=== PATIENT | female | born 1960 | race Caucasian/White ===

== ENCOUNTER → 2016-08-23 | Outpatient (CLI) | payer MEDICAID ==
[2016-08-23 12:58] LABS: Hemoglobin A1C 6.6 % (4.2-6.1)
== END | disposition home or self-care (01) ==
LOC: LABWHC1 07:52
PROVIDERS: ATTEND Internal Medicine Endocrinology, Diabetes & Metabolism
DX: E11.65 Type 2 diabetes mellitus with hyperglycemia (principal)
CPT/HCPCS: 36415; 83036

== ENCOUNTER → 2016-10-30 | Outpatient (CLI) | payer MEDICAID ==
--- NOTE | 2016-10-31 21:30 | CT ---
EXAMINATION TYPE: CT heart w calcium score DATE OF EXAM: 10/31/2016 12:27 PM COMPARISON: NONE HISTORY: Screening for cardiovascular disorder. 213.9 CT DLP: 130.8 mGycm Automated exposure control for dose reduction was used. CT CALCIUM SCORING Coronary calcium is a marker for plaque (fatty deposits) in a blood vessel or atherosclerosis (harden ing of the arteries). The presence and amount of calcium detected in a coronary artery by the CT sca n, indicates the presence and amount of atherosclerotic plaque. These calcium deposits appear years before the development of heart disease symptoms such as chest pain and shortness of breath. A calcium score is computed for each of the coronary arteries based upon the volume and density of th e calcium deposits. This can be referred to as your calcified plaque burden. It does not correspond directly to the percentage of narrowing in the artery but does correlate with the severity of the un derlying coronary atherosclerosis. PROCEDURE TECHNIQUE - Prospective Gating was used. Slice thickness: 3mm. Density threshold (HU): 130, Pixel threshold: 3, Algorithm: discrete. RESULTS Region Calcium Score ([place]at[place]) Volume (mm3) Mass (g) LM 0 0 0 RCA 0 0 0 LAD 0 0 0 CX 0 0 0 Total 0 0 0 TOTAL CALCIUM SCORE 0 OTHER: Internal Grinder Tender image shows cholecystectomy clips inferiorly. Incidental note is made of dominant left coronary or circumflex artery some multilevel spurring anteriorly in the visualized thoracic spine is present. Linear scarring in the lingula is felt present near axial image 22. IMPRESSION: Calcium Score: 0 Implication: No identifiable plaque. Risk of Coronary Artery Disease: Very low, generally less than 5%.
== END | disposition home or self-care (01) ==
LOC: RADXRMAIN 15:53
PROVIDERS: ATTEND Radiology Diagnostic Radiology
DX: Z13.9 Encounter for screening, unspecified (principal)

== ENCOUNTER → 2017-07-20 | Outpatient (CLI) | payer MEDICAID ==
[2017-07-20 09:25] LABS: ALT 69 U/L (9-52); AST 36 U/L (14-36); Alkaline Phosphatase 84 U/L (38-126); Anion Gap 12 mmol/L; Blood Urea Nitrogen 16 mg/dL (7-17); Calcium 9.5 mg/dL (8.4-10.2); Carbon Dioxide 25 mmol/L (22-30); Chloride 102 mmol/L (98-107); Cholesterol 115 mg/dL (<200); Glucose 266 mg/dL (74-99); HDL Cholesterol 41 mg/dL (40-60); LDL Cholesterol,Calculated 45 mg/dL (0-99); Potassium 4.4 mmol/L (3.5-5.1); Sodium 139 mmol/L (137-145); Total Bilirubin 0.7 mg/dL (0.2-1.3); Total Protein 6.7 g/dL (6.3-8.2); Triglycerides 143 mg/dL (<150)
[2017-07-20 17:34] LABS: Hemoglobin A1C 10.5 % (4.0-6.0)
== END | disposition home or self-care (01) ==
LOC: LABWHC1 08:14
PROVIDERS: ATTEND Internal Medicine Endocrinology, Diabetes & Metabolism
DX: E11.65 Type 2 diabetes mellitus with hyperglycemia (principal); E03.8 Other specified hypothyroidism
CPT/HCPCS: 36415; 80053; 80061; 82043; 82570; 83036; 84443

== ENCOUNTER → 2017-07-31 | Outpatient (CLI) | payer MEDICAID | END | disposition home or self-care (01) | LOC: LABWHC1 15:03 | PROVIDERS: ATTEND Internal Medicine Endocrinology, Diabetes & Metabolism | DX: E11.65 Type 2 diabetes mellitus with hyperglycemia (principal) | CPT/HCPCS: 36415; 82947; 84681 ==

== ENCOUNTER → 2017-08-16 | Outpatient (CLI) | payer OTHER ==
--- NOTE | 2017-08-16 16:04 | XR ---
EXAMINATION TYPE: XR tibia fibula LT DATE OF EXAM: 08/16/2017 COMPARISON: NONE HISTORY: Pain and bruising from fall TECHNIQUE: 2 view left tibia and fibula FINDINGS: No acute fractures or dislocations are evident. Joint spaces appear preserved. Some soft ti ssue swelling is along the anterior proximal and mid tibia region. Follow-up exam can be performed 7-10 days from acute trauma for continued pain. IMPRESSION: 1. Soft tissue swelling anterior proximal left foreleg.
--- NOTE | 2017-08-16 16:05 | XR ---
EXAMINATION TYPE: XR chest 2V DATE OF EXAM: 08/16/2017 COMPARISON: 05/06/2013 TECHNIQUE: PA and lateral views submitted. HISTORY: Pain post fall FINDINGS: The lungs are clear and there is no pneumothorax, pleural effusion, or focal pneumonia. Mild diffus e osteopenia and arthropathy of the AC joint. Hypertrophic change of the spine with a curvature corre late for scoliosis. IMPRESSION: 1. No acute process.
--- NOTE | 2017-08-16 16:10 | XR ---
EXAMINATION TYPE: XR ribs LT DATE OF EXAM: 08/16/2017 COMPARISON: NONE HISTORY: Pain post fall TECHNIQUE: 4 views of the left ribs are submitted FINDINGS: Mild diffuse osteopenia. Hypertrophic change and curvature the spine noted. Mild arthropath y AC joint. There is a slight deformity anterior lateral margin of the left seventh rib. No displaced fracture se en. IMPRESSION: No acute displaced rib fracture. There is a subtle deformity in the left anterior seventh rib which may represent hairline nondisplaced fracture. No pneumothorax.
== END | disposition home or self-care (01) ==
LOC: RADXRMAIN 15:12
PROVIDERS: ATTEND Emergency Medicine
DX: R07.82 Intercostal pain (principal); S20.20XA Contusion of thorax, unspecified, initial encounter; S80.12XA Contusion of left lower leg, initial encounter; M79.89 Other specified soft tissue disorders
CPT/HCPCS: 71046

== ENCOUNTER → 2017-11-07 | Outpatient (CLI) | payer MEDICAID ==
[2017-11-07 09:07] LABS: ALT 53 U/L (9-52); AST 37 U/L (14-36); Albumin 4.2 g/dL (3.5-5.0); Alkaline Phosphatase 89 U/L (38-126); Anion Gap 15 mmol/L; Blood Urea Nitrogen 17 mg/dL (7-17); Calcium 9.6 mg/dL (8.4-10.2); Carbon Dioxide 26 mmol/L (22-30); Chloride 102 mmol/L (98-107); Glucose 194 mg/dL (74-99); Potassium 4.5 mmol/L (3.5-5.1); Sodium 143 mmol/L (137-145); Total Bilirubin 0.7 mg/dL (0.2-1.3); Total Protein 6.8 g/dL (6.3-8.2)
== END ==
LOC: LABWHC1 07:54
PROVIDERS: ATTEND Internal Medicine Endocrinology, Diabetes & Metabolism
DX: E11.65 Type 2 diabetes mellitus with hyperglycemia (principal)
CPT/HCPCS: 36415; 80053; 83036; 84443

== ENCOUNTER → 2018-04-29 | Outpatient (CLI) | payer MEDICAID ==
[2018-04-29 09:15] LABS: ALT 41 U/L (9-52); AST 24 U/L (14-36); Albumin 4.1 g/dL (3.5-5.0); Alkaline Phosphatase 94 U/L (38-126); Anion Gap 9 mmol/L; Blood Urea Nitrogen 16 mg/dL (7-17); Calcium 9.9 mg/dL (8.4-10.2); Carbon Dioxide 29 mmol/L (22-30); Chloride 103 mmol/L (98-107); Cholesterol 133 mg/dL (<200); Glucose 213 mg/dL (74-99); HDL Cholesterol 44 mg/dL (40-60); LDL Cholesterol,Calculated 50 mg/dL (0-99); Potassium 4.7 mmol/L (3.5-5.1); Sodium 141 mmol/L (137-145); Total Bilirubin 0.6 mg/dL (0.2-1.3); Total Protein 7.1 g/dL (6.3-8.2); Triglycerides 196 mg/dL (<150)
[2018-04-29 20:39] LABS: Hemoglobin A1C 8.7 % (4.0-6.0)
== END ==
LOC: LABWHC1 07:49
PROVIDERS: ATTEND Internal Medicine Endocrinology, Diabetes & Metabolism
DX: E11.65 Type 2 diabetes mellitus with hyperglycemia (principal); E03.8 Other specified hypothyroidism
CPT/HCPCS: 36415; 80053; 80061; 82043; 82570; 83036; 84443

== ENCOUNTER → 2018-08-23 | Outpatient (CLI) | payer MEDICAID ==
[2018-08-23 18:14] LABS: Albumin 4.3 g/dL (3.80-4.90); Albumin/Globulin Ratio 2.05 (1.60-3.17); Anion Gap 10.7 mmol/L (4.00-12.00); Calcium 9.6 mg/dL (8.7-10.3); Carbon Dioxide 26.3 mmol/L (21.6-31.8); Globulin 2.1 g/dL (1.6-3.3); LDL Cholesterol,Calculated 51.6 mg/dL (0.0-131.0); Potassium 4.5 mmol/L (3.5-5.5); Total Bilirubin 0.6 mg/dL (0.2-1.2); Total Protein 6.4 g/dL (6.2-8.2); VLDL Calculation 29.4 mg/dL (5.00-40.00)
== END ==
LOC: LABWHC1 07:40
PROVIDERS: ATTEND Internal Medicine Endocrinology, Diabetes & Metabolism
DX: E11.65 Type 2 diabetes mellitus with hyperglycemia (principal); E03.8 Other specified hypothyroidism
CPT/HCPCS: 36415; 80053; 80061; 82043; 82570; 83036; 84443

== ENCOUNTER 2018-11-18 15:12 | Emergency (ER) | payer MEDICAID ==
[2018-11-18] MEDS ORDERED: KETOROLAC 30 MG/ML 1 ML VIAL IVP STA ×2 (15:30→16:02)
[2018-11-18] MEDS ORDERED: SODIUM CHLORIDE 0.9% 500 ML 500 ML IV STA (15:30)
[2018-11-18] MEDS ORDERED: ONDANSETRON 4 MG/2 ML VIAL IVP STA (15:30)
[2018-11-18] MEDS ORDERED: SODIUM CHLORIDE 0.9% 1,000 ML IV STA (15:30)
--- NOTE | 2018-11-18 15:32 | ED ---
Abdominal Pain HPI - General Chief Complaint: Abdominal Pain Stated Complaint: Kidney Stone Time Seen by Provider: 11/18/18 15:20 Source: patient, RN notes reviewed Mode of arrival: ambulatory Limitations: no limitations - History of Present Illness Initial Comments: This is a 50-year-old female with one prior episode of kidney stones who states he had the onset last evening of left-sided flank and CVA area pain she states is worse it is 10/10 currently it's severity sharp in nature from most part nonradiating. He had nausea and vomiting with that. No diarrhea. No fevers chills or sweats or other symptoms. He does not seem to get any worse with movement or deep breathing. It feels identical to her previous kidney stone. She also denies any hematuria or dysuria MD Complaint: flank pain - Related Data Home Medications Medication Instructions Recorded Confirmed Atorvastatin Calcium [Lipitor] 10 mg PO DAILY 11/18/18 11/18/18 Dulaglutide [Trulicity] 1.5 mg SQ TH 11/18/18 11/18/18 Ibuprofen [Motrin Ib] 400 mg PO Q8H 11/18/18 11/18/18 Ketorolac [Toradol] 10 mg PO Q12HR 11/18/18 11/18/18 Levothyroxine Sodium [Synthroid] 137 mcg PO DAILY 11/18/18 11/18/18 metFORMIN HCL [Glucophage Xr] 500 mg PO BID 11/18/18 11/18/18 Previous Rx's Medication Instructions Recorded Ketorolac [Toradol] 10 mg PO Q6HR #20 tab 11/18/18 Tamsulosin HCl [Flomax] 0.4 mg PO DAILY #7 capsule 11/18/18 Allergies Allergy/AdvReac Type Severity Reaction Status Date / Time codeine AdvReac Nausea & Verified 11/18/18 15:53 Vomiting morphine AdvReac Nausea & Verified 11/18/18 15:53 Vomiting Review of Systems ROS Statement: Those systems with pertinent positive or pertinent negative responses have been documented in the HPI. ROS Other: All systems not noted in ROS Statement are negative. Past Medical History Past Medical History: Diabetes Mellitus, Thyroid Disorder Additional Past Medical History / Comment(s): kidney stones History of Any Multi-Drug Resistant Organisms: None Reported Past Surgical History: Appendectomy, Section, Cholecystectomy, Orthopedic Surgery, Tonsillectomy Additional Past Surgical History / Comment(s): x3. lt knee Past Anesthesia/Blood Transfusion Reactions: No Reported Reaction Past Psychological History: No Psychological Hx Reported Smoking Status: Never smoker Past Alcohol Use History: None Reported Past Drug Use History: None Reported General Exam - General Exam Comments Initial Comments: This is a well-developed well-nourished awake alert oriented 3 female Limitations: no limitations General appearance: alert, anxious, in distress Head exam: Present: atraumatic, normocephalic, normal inspection Eye exam: Present: normal appearance, PERRL, EOMI. Absent: scleral icterus, conjunctival injection, periorbital swelling ENT exam: Present: normal exam, mucous membranes moist Neck exam: Present: normal inspection. Absent: tenderness, meningismus, lymphadenopathy Respiratory exam: Present: normal lung sounds bilaterally. Absent: respiratory distress, wheezes, rales, rhonchi, stridor Cardiovascular Exam: Present: regular rate, normal rhythm, normal heart sounds. Absent: systolic murmur, diastolic murmur, rubs, gallop, clicks GI/Abdominal exam: Present: soft, tenderness (Mild left flank tenderness palpation), normal bowel sounds. Absent: distended, guarding, rebound, rigid, bruit, pulsatile mass Extremities exam: Present: normal inspection, full ROM, normal capillary refill. Absent: tenderness, pedal edema, joint swelling, calf tenderness Back exam: Present: normal inspection, full ROM, CVA tenderness (L). Absent: rash noted Neurological exam: Present: alert, oriented X3, CN II-XII intact Psychiatric exam: Present: normal affect, normal mood Skin exam: Present: warm, dry, intact, normal color. Absent: rash Course Vital Signs 11/18/18 15:18 Temperature 98.9 F Pulse Rate 81 Respiratory 22 Rate Blood Pressure 165/95 O2 Sat by Pulse 98 Oximetry - Reevaluation(s) Reevaluation #1: 11/18/18 16:36 I did initially some pain relief from a 9 to a 6 on the first Toradol dose he get more relief after the second dose. Medical Decision Making - Medical Decision Making Patient is feeling somewhat improved she still has some pain but she would like to go home she'll be discharged with Toradol and Flomax prescriptions. She can follow-up with her doctor return when necessary - Lab Data Result diagrams: 11/18/18 15:32 11/18/18 15:32 Lab Results 11/18/18 11/18/18 11/18/18 Range/Units 15:32 15:32 15:32 WBC 13.1 H (3.8-10.6) k/uL RBC 4.94 (3.80-5.40) m/uL Hgb 15.1 (11.4-16.0) gm/dL Hct 45.3 (34.0-46.0) % MCV 91.6 (80.0-100.0) fL MCH 30.5 (25.0-35.0) pg MCHC 33.3 (31.0-37.0) g/dL RDW 13.0 (11.5-15.5) % Plt Count 256 (150-450) k/uL Neutrophils % 85 % Lymphocytes % 9 % Monocytes % 4 % Eosinophils % 1 % Basophils % 0 % Neutrophils # 11.1 H (1.3-7.7) k/uL Lymphocytes # 1.1 (1.0-4.8) k/uL Monocytes # 0.5 (0-1.0) k/uL Eosinophils # 0.1 (0-0.7) k/uL Basophils # 0.0 (0-0.2) k/uL Sodium 141 (137-145) mmol/L Potassium 3.9 (3.5-5.1) mmol/L Chloride 104 (98-107) mmol/L Carbon Dioxide 22 (22-30) mmol/L Anion Gap 15 mmol/L BUN 15 (7-17) mg/dL Creatinine 0.97 (0.52-1.04) mg/dL Est GFR (CKD-EPI)AfAm 75 (>60 ml/min/1.73 sqM) Est GFR (CKD-EPI)NonAf 65 (>60 ml/min/1.73 sqM) Glucose 175 H (74-99) mg/dL Calcium 9.9 (8.4-10.2) mg/dL Total Bilirubin 0.6 (0.2-1.3) mg/dL AST 31 (14-36) U/L ALT 39 (9-52) U/L Alkaline Phosphatase 84 (38-126) U/L Creatine Kinase 67 (30-135) U/L Troponin I <0.012 (0.000-0.034) ng/mL Total Protein 7.5 (6.3-8.2) g/dL Albumin 4.6 (3.5-5.0) g/dL Amylase 95 (30-110) U/L Lipase 358 H (23-300) U/L - Radiology Data Radiology results: report reviewed (I did review the imaging and report evidence of a 2 mm distal ureter stone in the left mild hydronephrosis, nonobstructing.), image reviewed Disposition Clinical Impression: Kidney stone on left side, Renal colic on left side, Hydronephrosis Disposition: HOME SELF-CARE Condition: Good Instructions (If sedation given, give patient instructions): Kidney Stones (ED), Flank Pain (ED), Renal Colic (ED) Prescriptions: Tamsulosin HCl [Flomax] 0.4 mg PO DAILY #7 capsule Ketorolac [Toradol] 10 mg PO Q6HR #20 tab Is patient prescribed a controlled substance at d/c from ED?: No Referrals: Yovani Perea Jr, [Primary Care Provider] - 1-2 days
[2018-11-18 15:51] LABS: Basophils % (A) 0 %; Eosinophils # (A) 0.1 k/uL (0-0.7); Eosinophils % (A) 1 %; HCT 45.3 % (34.0-46.0); HGB 15.1 gm/dL (11.4-16.0); Lymphocytes # (A) 1.1 k/uL (1.0-4.8); Lymphocytes % (A) 9 %; MCH 30.5 pg (25.0-35.0); MCHC 33.3 g/dL (31.0-37.0); MCV 91.6 fL (80.0-100.0); Mean Platelet Volume 8.1; Monocytes # (A) 0.5 k/uL (0-1.0); Monocytes % (A) 4 %; Neutrophils # (A) 11.1 k/uL (1.3-7.7); Neutrophils % (A) 85 %; Platelet Count 256 k/uL (150-450); RBC 4.94 m/uL (3.80-5.40); WBC 13.1 k/uL (3.8-10.6)
[2018-11-18 15:55] LABS: Albumin 4.6 g/dL (3.5-5.0); Calcium 9.9 mg/dL (8.4-10.2); Potassium 3.9 mmol/L (3.5-5.1); Total Bilirubin 0.6 mg/dL (0.2-1.3); Total Protein 7.5 g/dL (6.3-8.2)
[2018-11-18] MEDS ORDERED: TAMSULOSIN 0.4 MG CAP.ER.24H PO STA (16:02)
--- NOTE | 2018-11-18 16:05 | XR ---
EXAMINATION TYPE: XR KUB DATE OF EXAM: 11/18/2018 CLINICAL DATA: 58-year-old female left-sided abdominal pain, [facility] COMPARISON: 03/21/2012 FINDINGS: Lung bases are clear. No evidence for free intraperitoneal air. Cholecystectomy clips. No dilated small bowel or air-fluid levels. Scattered air seen throughout the colon extending distall y into the rectum. Mild stool in the right side of the abdomen. No suspicious calcifications identified. IMPRESSION: No suspicious calcification is radiographically apparent. No evidence of bowel obstruction or free in traperitoneal air.
--- NOTE | 2018-11-18 16:31 | CT ---
EXAMINATION TYPE: CT abdomen pelvis wo con DATE OF EXAM: 11/18/2018 COMPARISON: Abdomen same date, CT abdomen pelvis 03/21/2012 HISTORY: Left sided pain with vomiting CT DLP: 705.9 mGycm Automated exposure control for dose reduction was used. TECHNIQUE: Helical acquisition of images from the lung bases through the pelvis. FINDINGS: Lack of contrast could compromise sensitivity. Probable small hiatal hernia LUNG BASES: No significant abnormality is appreciated. AORTA: No significant abnormality is appreciated. LIVER/GB: Patient is post cholecystectomy. No evident liver mass. PANCREAS: No significant abnormality is seen. SPLEEN: No significant abnormality is seen. ADRENALS: No significant abnormality is seen. KIDNEYS: There is mild left-sided hydronephrosis. Nonobstructive calculus punctate at the lower pole. Left-sided hydroureter is present. At the level of the distal left ureter there is a punctate calcif ication measuring only approximately 2 mm. REPRODUCTIVE ORGANS: No significant abnormality is seen. URINARY BLADDER: No significant abnormality is seen. BOWEL: No significant abnormality is seen. FREE AIR: No Free Air is visible. ASCITES: None visible. PELVIC ADENOPATHY: None visualized. RETROPERITONEAL ADENOPATHY: No Retroperitoneal Adenopathy visible. OSSEOUS STRUCTURES: No significant abnormality is seen. IMPRESSION: PUNCTATE DISTAL LEFT URETERAL CALCULUS. MILD LEFT HYDRONEPHROSIS. POSTOP CHANGES. NONCONTRAST EXAM.
[2018-11-18 16:58] VITALS: BP 139/86; PULSE 74; RESP 18; TEMP 98.7
== END 2018-11-18 16:58 | disposition home or self-care (01) ==
LOC: EC 15:12
DX: N13.2 Hydronephrosis with renal and ureteral calculous obstruction (principal); E11.9 Type 2 diabetes mellitus without complications; E07.9 Disorder of thyroid, unspecified; Z90.49 Acquired absence of other specified parts of digestive tract; Z79.899 Other long term (current) drug therapy; Z79.1 Long term (current) use of non-steroidal anti-inflammatories (NSAID); Z79.890 Hormone replacement therapy; Z79.84 Long term (current) use of oral hypoglycemic drugs; Z88.5 Allergy status to narcotic agent
CPT/HCPCS: 36415; 80053; 82150; 82550; 83690; 84484; 85025; 74018; 74176; 99284; 96374; 96375; 96376; 96361; J2405; J1885; 99283

== ENCOUNTER → 2019-03-19 | Outpatient (CLI) | payer MEDICAID ==
[2019-03-19 17:01] LABS: African American GFR (CKD) 81.7 (60.0-200.0); Albumin 4.3 g/dL (3.80-4.90); Albumin/Globulin Ratio 2.26 (1.60-3.17); Anion Gap 10.9 mmol/L (4.00-12.00); BUN/Creat Ratio 18.89 Ratio (12.00-20.00); Calcium 9.4 mg/dL (8.7-10.3); Carbon Dioxide 25.1 mmol/L (21.6-31.8); Chol/HDL Ratio 3.15; Globulin 1.9 g/dL (1.6-3.3); Potassium 4.7 mmol/L (3.5-5.5); Total Bilirubin 0.5 mg/dL (0.2-1.2); Total Protein 6.2 g/dL (6.2-8.2)
[2019-03-19 18:49] LABS: Hemoglobin A1C 7.4 % (4.0-6.0)
== END | disposition home or self-care (01) ==
LOC: LABWHC1 07:54
PROVIDERS: ATTEND Internal Medicine Endocrinology, Diabetes & Metabolism
DX: E11.65 Type 2 diabetes mellitus with hyperglycemia (principal)
CPT/HCPCS: 36415; 80053; 80061; 82043; 82570; 83036; 84443

== ENCOUNTER → 2019-08-06 | Outpatient (CLI) | payer MEDICAID ==
[2019-08-06 12:08] LABS: African American GFR (CKD) 81.1 (60.0-200.0); Albumin 4.3 g/dL (3.80-4.90); Albumin/Globulin Ratio 2.39 (1.60-3.17); Anion Gap 11.4 mmol/L (4.00-12.00); BUN/Creat Ratio 18.89 Ratio (12.00-20.00); Calcium 9.4 mg/dL (8.7-10.3); Carbon Dioxide 25.6 mmol/L (21.6-31.8); Chol/HDL Ratio 3.73; Globulin 1.8 g/dL (1.6-3.3); LDL Cholesterol,Calculated 35.2 mg/dL (0.0-131.0); Potassium 4.6 mmol/L (3.5-5.5); Total Bilirubin 0.5 mg/dL (0.2-1.2); Total Protein 6.1 g/dL (6.2-8.2); VLDL Calculation 46.8 mg/dL (5.00-40.00)
[2019-08-06 14:48] LABS: Hemoglobin A1C 8.2 % (4.0-6.0)
[2019-08-07 04:18] LABS: Urine Creatinine 241.9 mg/dL
== END ==
LOC: LABWHC1 06:35
PROVIDERS: ATTEND Internal Medicine Endocrinology, Diabetes & Metabolism
DX: E11.65 Type 2 diabetes mellitus with hyperglycemia (principal)
CPT/HCPCS: 36415; 80053; 80061; 82043; 82570; 83036; 84443

== ENCOUNTER → 2019-12-11 | Outpatient (CLI) | payer MEDICAID ==
--- NOTE | 2019-12-11 15:23 | XR ---
EXAMINATION TYPE: XR toes RT DATE OF EXAM: 12/11/2019 COMPARISON: NONE HISTORY: Pain TECHNIQUE: 3 views submitted FINDINGS: There is diffuse soft tissue edema. Mild arthropathy of the DIP and MTP joint with no evide nce of erosive change. Mild osteopenic change. On the lateral view there is a cortical offset involvi ng the dorsal surface of the base of the distal phalanx compatible with a hairline minimally displace d fracture. IMPRESSION: 1. Diffuse soft tissue edema. On the lateral view there is a cortical offset along the dorsal surface of the base of the distal phalanx suggestive of a hairline fracture.
== END | disposition home or self-care (01) ==
LOC: RADXRMAIN 15:05
PROVIDERS: ATTEND Radiology Diagnostic Radiology
DX: S99.921A Unspecified injury of right foot, initial encounter (principal)

== ENCOUNTER → 2020-03-23 | Outpatient (CLI) | payer MEDICAID ==
[2020-03-23 11:44] LABS: African American GFR (CKD) 81.1 (60.0-200.0); Albumin 4.2 g/dL (3.80-4.90); Anion Gap 8.8 mmol/L (4.00-12.00); BUN/Creat Ratio 23.33 Ratio (12.00-20.00); Calcium 9.1 mg/dL (8.7-10.3); Carbon Dioxide 24.2 mmol/L (21.6-31.8); Chol/HDL Ratio 3.71; Globulin 2.1 g/dL (1.6-3.3); LDL Cholesterol,Calculated 44.2 mg/dL (0.0-131.0); Potassium 4.3 mmol/L (3.5-5.5); Total Bilirubin 0.5 mg/dL (0.3-1.2); Total Protein 6.3 g/dL (6.2-8.2); VLDL Calculation 39.8 mg/dL (5.00-40.00)
[2020-03-23 15:55] LABS: Hemoglobin A1C 10.2 % (4.0-6.0)
[2020-03-23 20:49] LABS: Urine Creatinine 166.7 mg/dL
== END | disposition home or self-care (01) ==
LOC: LABWHC1 06:59
PROVIDERS: ATTEND Internal Medicine Endocrinology, Diabetes & Metabolism
DX: E11.65 Type 2 diabetes mellitus with hyperglycemia (principal)
CPT/HCPCS: 36415; 80053; 80061; 82043; 82570; 83036; 84443

== ENCOUNTER → 2020-10-06 | Outpatient (CLI) | payer MEDICAID ==
[2020-10-06 16:36] LABS: Hemoglobin A1C 7.1 % (4.0-6.0)
[2020-10-07 01:26] LABS: Urine Creatinine 250.9 mg/dL
[2020-10-07 05:15] LABS: African American GFR (CKD) 80.5 (60.0-200.0); Albumin 4.3 g/dL (3.80-4.90); Albumin/Globulin Ratio 2.15 (1.60-3.17); Anion Gap 10.4 mmol/L (4.00-12.00); BUN/Creat Ratio 24.44 Ratio (12.00-20.00); Calcium 9.9 mg/dL (8.7-10.3); Carbon Dioxide 21.6 mmol/L (21.6-31.8); Chol/HDL Ratio 3.48; Non-African American GFR(CKD) 69.5 (60.0-200.0); Potassium 4.7 mmol/L (3.5-5.5); Total Bilirubin 0.4 mg/dL (0.2-1.2); Total Protein 6.3 g/dL (6.2-8.2)
== END | disposition home or self-care (01) ==
LOC: LABWHC1 06:52
PROVIDERS: ATTEND Internal Medicine Endocrinology, Diabetes & Metabolism
DX: E11.65 Type 2 diabetes mellitus with hyperglycemia (principal)
CPT/HCPCS: 36415; 80053; 80061; 82043; 82570; 83036; 84443

== ENCOUNTER → 2020-10-08 | Outpatient (CLI) | payer MEDICAID | END | disposition home or self-care (01) | LOC: LABWHC1 10:08 | PROVIDERS: ATTEND Internal Medicine Endocrinology, Diabetes & Metabolism | DX: E11.65 Type 2 diabetes mellitus with hyperglycemia (principal) | CPT/HCPCS: 84443 ==

== ENCOUNTER 2020-10-22 06:46 | Day surgery (SDC) | payer MEDICAID ==
[2020-10-19 15:46] VITALS: BMI 30.4
[~2020-10-22 06:46] MED LIST: LACTATED RINGERS 1,000 ML IV SCH; LIDOCAINE 1% (10MG/ML) FOR IV START INTRADERMA PRN
[2020-10-22 07:18] VITALS: RESP 16; TEMP 97.7
[2020-10-22 07:21] LABS: Glucose,Whole Blood 132 mg/dL (75-99)
[2020-10-22] MEDS ORDERED: PROPOFOL 10 MG/ML 20 ML VIAL IV ONE (07:21)
--- NOTE | 2020-10-22 07:44 | P.PCN ---
Date of Procedure: 10/22/20 Procedure(s) Performed: BRIEF HISTORY: Patient is a 60-year-old pleasant female scheduled for an elective colonoscopy as a part of screening for colorectal neoplasia. Her last colonoscopy was 11 years ago. PROCEDURE PERFORMED: Colonoscopy with biopsy. PREOPERATIVE DIAGNOSIS: Screening for colon cancer. IV sedation per Anesthesia. PROCEDURE: After informed consent was obtained, the patient, was brought into the endoscopy unit. IV sedation was administered by Anesthesia under continuous monitoring. Digital rectal examination was normal. Initially the Olympus CF-160 flexible video colonoscope was then inserted in the rectum, gradually advanced into the cecum without any difficulty. Careful examination was performed as the scope was gradually being withdrawn. Ileocecal valve and the appendiceal orifice were visualized and appeared normal. Prep was excellent. Mucosa of the cecum, appeared normal. In the ascending colon there was a 3 mm polyp that was removed by cold biopsy. Rest of the ascending colon, transverse colon, descending colon, sigmoid colon, and rectum appeared normal. In the proximal rectum there was a 2 mm polyp that was removed by cold biopsy. Left-sided diverticulosis seen. Retroflexion was performed in the rectum and no lesions were seen. The patient tolerated the procedure well. IMPRESSION: 3 mm ascending colon polyp status post removal with cold biopsy 2 mm rectal polyp status post removal by cold biopsy Scattered left sided diverticulosis. RECOMMENDATIONS: Findings of this examination were discussed with the patient as well as a family. She was advised to follow with the biopsy results. If the biopsy shows an adenoma she can have a repeat colonoscopy in 5 years.
[2020-10-22 08:06] VITALS: BP 136/75; PULSE 63
== END 2020-10-22 08:19 | disposition home or self-care (01) ==
LOC: ORWHC2ENDO 06:46
PROVIDERS: ATTEND Internal Medicine Gastroenterology
DX: Z12.11 Encounter for screening for malignant neoplasm of colon (principal); K63.5 Polyp of colon; K62.1 Rectal polyp; K57.30 Diverticulosis of large intestine without perforation or abscess without bleeding; E78.5 Hyperlipidemia, unspecified; E07.9 Disorder of thyroid, unspecified; E11.9 Type 2 diabetes mellitus without complications; Z79.84 Long term (current) use of oral hypoglycemic drugs; Z79.890 Hormone replacement therapy; Z79.899 Other long term (current) drug therapy; Z87.442 Personal history of urinary calculi; Z88.5 Allergy status to narcotic agent
CPT/HCPCS: 88305; 45380; J2704

== ENCOUNTER → 2021-04-12 | Outpatient (CLI) | payer MEDICAID, OTHER | END | disposition home or self-care (01) | LOC: LABWHC1 10:22 | PROVIDERS: ATTEND Emergency Medicine | DX: Z20.822 Contact with and (suspected) exposure to COVID-19 (principal) | CPT/HCPCS: 87635 ==

== ENCOUNTER → 2021-04-13 | Outpatient (CLI) | payer MEDICAID, OTHER | END | disposition home or self-care (01) | LOC: LABWHC1 09:59 | PROVIDERS: ATTEND Emergency Medicine | DX: Z20.822 Contact with and (suspected) exposure to COVID-19 (principal) | CPT/HCPCS: 87635 ==

== ENCOUNTER → 2021-05-11 | Outpatient (CLI) | payer MEDICAID ==
[2021-05-11 11:45] LABS: African American GFR (CKD) 74.7 (60.0-200.0); Albumin 4.3 g/dL (3.8-4.9); Albumin/Globulin Ratio 1.74 (1.60-3.17); Anion Gap 14.6 mmol/L (4.00-12.00); BUN/Creat Ratio 17.64 Ratio (12.00-20.00); Blood Urea Nitrogen 16.9 mg/dL (9.0-27.0); Calcium 9.6 mg/dL (8.7-10.3); Chol/HDL Ratio 3.05 Ratio; Globulin 2.5 g/dL (1.6-3.3); HDL Cholesterol 37.7 mg/dL (40.00-60.00); LDL Cholesterol,Calculated 40.1 mg/dL (0.0-131.0); Non-African American GFR(CKD) 64.4 (60.0-200.0); Potassium 4.5 mmol/L (3.5-5.5); Total Bilirubin 0.4 mg/dL (0.30-1.20); Total Protein 6.7 g/dL (6.2-8.2); VLDL Calculation 37.2 mg/dL (5.00-40.00)
== END | disposition home or self-care (01) ==
LOC: LABWHC1 07:09
PROVIDERS: ATTEND Internal Medicine Endocrinology, Diabetes & Metabolism
DX: E11.65 Type 2 diabetes mellitus with hyperglycemia (principal)
CPT/HCPCS: 36415; 80053; 80061; 82043; 82570; 83036; 84443

== ENCOUNTER → 2022-01-13 | Outpatient (CLI) | payer MEDICAID ==
[2022-01-13 11:16] LABS: ALT 64 U/L (8-44); AST 49 U/L (13-35); African American GFR (CKD) 72.9 (60.0-200.0); Albumin 4.5 g/dL (3.8-4.9); Albumin/Globulin Ratio 1.77 (1.60-3.17); Alkaline Phosphatase 93 U/L (41-126); BUN/Creat Ratio 19.24 Ratio (12.00-20.00); Blood Urea Nitrogen 18.7 mg/dL (9.0-27.0); Calcium 10.6 mg/dL (8.7-10.3); Carbon Dioxide 24.6 mmol/L (20.0-27.5); Chloride 102 mmol/L (96-109); Chol/HDL Ratio 3.18 Ratio; Globulin 2.6 g/dL (1.6-3.3); Glucose 187 mg/dL (70-110); LDL Cholesterol,Calculated 42.1 mg/dL (0.0-131.0); Non-African American GFR(CKD) 62.9 (60.0-200.0); Sodium 141 mmol/L (135-145); Total Protein 7.1 g/dL (6.2-8.2)
== END | disposition home or self-care (01) ==
LOC: LABWHC1 07:00
PROVIDERS: ATTEND Internal Medicine Endocrinology, Diabetes & Metabolism
DX: E11.65 Type 2 diabetes mellitus with hyperglycemia (principal)
CPT/HCPCS: 36415; 80053; 80061; 82043; 82570; 83036; 84443

== ENCOUNTER → 2022-05-30 | Outpatient (CLI) | payer MEDICAID ==
[2022-05-30 14:43] LABS: ALT 13 U/L (8-44); AST 20 U/L (13-35); African American GFR (CKD) 75.9 (60.0-200.0); Albumin 4.2 g/dL (3.8-4.9); Albumin/Globulin Ratio 1.49 (1.60-3.17); Alkaline Phosphatase 91 U/L (41-126); BUN/Creat Ratio 23.88 Ratio (12.00-20.00); Blood Urea Nitrogen 22.3 mg/dL (9.0-27.0); Calcium 9.7 mg/dL (8.7-10.3); Carbon Dioxide 20.1 mmol/L (20.0-27.5); Chloride 106 mmol/L (96-109); Globulin 2.8 g/dL (1.6-3.3); Glucose 91 mg/dL (70-110); LDL Cholesterol,Calculated 46.8 mg/dL (0.0-131.0); Non-African American GFR(CKD) 65.5 (60.0-200.0); Potassium 4.2 mmol/L (3.5-5.5); Sodium 140 mmol/L (135-145)
== END | disposition home or self-care (01) ==
LOC: LABWHC1 07:17
PROVIDERS: ATTEND Internal Medicine Endocrinology, Diabetes & Metabolism
DX: E11.65 Type 2 diabetes mellitus with hyperglycemia (principal)
CPT/HCPCS: 36415; 80053; 80061; 82043; 82570; 83036; 84443

== ENCOUNTER → 2022-08-03 | Outpatient (CLI) | payer MEDICAID ==
--- NOTE | 2022-08-03 10:36 | XR ---
EXAMINATION TYPE: XR knee complete RT DATE OF EXAM: 08/03/2022 CLINICAL HISTORY: pain TECHNIQUE: Three views of the right knee are obtained. COMPARISON: None. FINDINGS: There is no acute fracture/dislocation. The tri-compartment joint spaces appear within no rmal limits. The overlying soft tissue appears unremarkable. IMPRESSION: There is no acute fracture or dislocation.ICD 10 NO FRACTURE, INITIAL EVALUATION
== END | disposition home or self-care (01) ==
LOC: RADXRMAIN 10:01
PROVIDERS: ATTEND Radiology Diagnostic Radiology
DX: M25.561 Pain in right knee (principal)

== ENCOUNTER → 2022-08-07 | Outpatient (CLI) | payer MEDICAID ==
--- NOTE | 2022-08-07 08:19 | MR ---
EXAMINATION TYPE: MR knee RT wo con DATE OF EXAM: 08/07/2022 COMPARISON: Right knee x-ray August 03, 2022 HISTORY: R knee pain for one month. TECHNIQUE: Multiplanar, multisequence images of the knee is performed without IV contrast. FINDINGS: Exam slightly suboptimal as there is motion artifact degradation MEDIAL MENISCUS: Increased signal with horizontal and oblique components posterior horn likely abuts the inferior articular surface sagittal image 10. LATERAL MENISCUS: Anterior and posterior horns are intact without tear. CRUCIATE LIGAMENTS: The anterior and posterior cruciate ligaments are intact and unremarkable. COLLATERAL LIGAMENTS: The medial collateral ligament and lateral collateral ligament complex are inta ct and unremarkable. EXTENSOR MECHANISM: Visualized quadriceps and patellar tendons are intact. EFFUSION: Small suprapatellar joint effusion extending laterally. POPLITEAL CYST: No popliteal/davis cyst. TRICOMPARTMENT SPACES: Mild tricompartment joint space loss. No significant spurring. CARTILAGE: Tricompartment joint spaces are preserved. BONE MARROW SIGNAL: Focus of heterogeneous increased T2 signal involving the medial aspect of the dis romana medial femoral condyle measuring approximately 3.0 cm AP diameter by 2.0 cm craniocaudal diameter with subtle area of serpiginous diminished T1 signal abutting the articular surface seen best vizcaino l image 18 measuring 3 mm in transverse length. Some adjacent fluid is noted extending posteriorly. OTHER: Prominent varicose vein along the lateral aspect of the subcutaneous tissue incidentally noted . IMPRESSION: 1. Suspect subtle subchondral insufficiency fracture medial aspect distal medial femoral condyle with associated abnormal bone marrow edema/osseous contusion injury. Subtle at least intrasubstance tear but suspected full-thickness tear through the posterior horn of the medial meniscus. No ligamentous t ear is seen.
== END | disposition home or self-care (01) ==
LOC: RADMRIMAIN 07:29
PROVIDERS: ATTEND Orthopaedic Surgery
DX: M25.561 Pain in right knee (principal)

== ENCOUNTER → 2022-10-25 | Outpatient (CLI) | payer MEDICAID ==
[2022-10-25 11:13] LABS: ALT 21 U/L (8-44); AST 19 U/L (13-35); African American GFR (CKD) 76.4 (60.0-200.0); Albumin 4.2 g/dL (3.8-4.9); Albumin/Globulin Ratio 1.79 (1.60-3.17); Alkaline Phosphatase 109 U/L (41-126); BUN/Creat Ratio 25.83 Ratio (12.00-20.00); Calcium 9.5 mg/dL (8.7-10.3); Carbon Dioxide 24.5 mmol/L (20.0-27.5); Chloride 104 mmol/L (96-109); Chol/HDL Ratio 2.79 Ratio; Globulin 2.3 g/dL (1.6-3.3); Glucose 110 mg/dL (70-110); LDL Cholesterol,Calculated 42.5 mg/dL (0.0-131.0); Potassium 4.8 mmol/L (3.5-5.5); Sodium 139 mmol/L (135-145); Total Protein 6.5 g/dL (6.2-8.2)
== END | disposition home or self-care (01) ==
LOC: LABWHC1 07:00
PROVIDERS: ATTEND Internal Medicine Endocrinology, Diabetes & Metabolism
DX: E11.65 Type 2 diabetes mellitus with hyperglycemia (principal)
CPT/HCPCS: 36415; 80053; 80061; 82043; 82570; 83036; 84443

== ENCOUNTER → 2023-03-20 | Outpatient (CLI) | payer MEDICAID ==
[2023-03-20 13:39] LABS: ALT 24 U/L (8-44); AST 22 U/L (13-35); Albumin 4.4 d/dL (3.8-4.9); Alkaline Phosphatase 106 U/L (41-126); BUN/Creat Ratio 18.27 Ratio (12.00-20.00); Blood Urea Nitrogen 20.1 mg/dL (9.0-27.0); Calcium 9.6 mg/dL (8.7-10.3); Carbon Dioxide 24.1 mmol/L (21.6-31.8); Chloride 106 mmol/L (96-109); Chol/HDL Ratio 3.07 Ratio; Globulin 2.2 d/dL (1.6-3.3); Glucose 117 mg/dL (70-110); LDL Cholesterol,Calculated 44.7 mg/dL (0.0-131.0); Potassium 4.8 mmol/L (3.5-5.5); Sodium 140 mmol/L (135-145); Total Bilirubin 0.3 mg/dL (0.3-1.2); Total Protein 6.6 d/dL (6.2-8.2)
== END | disposition home or self-care (01) ==
LOC: LABWHC1 06:51
PROVIDERS: ATTEND Internal Medicine Endocrinology, Diabetes & Metabolism
DX: E11.65 Type 2 diabetes mellitus with hyperglycemia (principal); E03.8 Other specified hypothyroidism
CPT/HCPCS: 36415; 80053; 80061; 82043; 82570; 83036; 84443

== ENCOUNTER → 2023-06-12 | Outpatient (CLI) | payer MEDICAID ==
--- NOTE | 2023-06-12 10:31 | MM ---
Reason for Exam: Screening (asymptomatic). Last mammogram was performed 8 year(s) and 0 month(s) ago. Patient History: Menarche at age 16. First Full-Term at age 19. Postmenopausal. Patient has history of breast feeding. Patient used Hormonal Contraceptives for 20 years. 05/20/2008, Benign Cyst Aspiration on the right side. 05/20/2008, Benign Core Biopsy on the right side. Risk Values: Lucie 5 year model risk: 1.2%. NCI Lifetime model risk: 5.2%. Prior Study Comparison: 06/25/2012 Bilateral Diagnostic Mammogram, [facility]. 06/24/2013 Bilateral Screening Mammogram, [facility]. 06/29/2015 Bilateral Screening Mammogram, [facility]. Tissue Density: There are scattered fibroglandular densities. Findings: Analyzed By CAD. A few scattered benign oil cyst and vascular calcifications are present. Microclip anterior right breast from prior biopsy. Centrally located asymmetric density right CC view middle depth persists on 3-D images but becomes less pronounced on the nipple in profile view. This may represent superimposition shadow but further evaluation is recommended. Otherwise, no significant change. Overall Assessment: Incomplete: need additional imaging evaluation, BI-RAD 0 Management: Special View Mammogram of the right breast. Diagnostic Breast Ultrasound of the right breast. . [facility] will attempt to contact patient to return for supplemental views and ultrasound if indicated. Electronically signed and approved by: Renata Santiago M.D. Radiologist
--- NOTE | 2023-06-12 11:04 | MM ---
Reason for Exam: Additional evaluation requested from abnormal screening. Last mammogram was performed 8 year(s) and 0 month(s) ago. Patient History: Menarche at age 16. First Full-Term at age 19. Postmenopausal. Patient has history of breast feeding. Patient used Hormonal Contraceptives for 20 years. 05/20/2008, Benign Cyst Aspiration on the right side. 05/20/2008, Benign Core Biopsy on the right side. Risk Values: Lucie 5 year model risk: 1.2%. NCI Lifetime model risk: 5.2%. Tissue Density: Right: There are scattered fibroglandular densities. Findings: Analyzed By CAD. Centrally located asymmetric density likely localizing to the 11 to 12:00 position middle depth incompletely disperses on spot 3-D images. Further ultrasound evaluation is recommended. Overall Assessment: Incomplete: need additional imaging evaluation, BI-RAD 0 Management: Diagnostic Breast Ultrasound of the right breast. Electronically signed and approved by: Renata Santiago M.D. Radiologist
--- NOTE | 2023-06-12 11:09 | USB ---
Patient History: Menarche at age 16. First Full-Term at age 19. Postmenopausal. Patient has history of breast feeding. Patient used Hormonal Contraceptives for 20 years. 05/20/2008, Benign Cyst Aspiration on the right side. 05/20/2008, Benign Core Biopsy on the right side. Risk Values: Lucie 5 year model risk: 1.2%. NCI Lifetime model risk: 5.2%. Prior Study Comparison: 06/25/2012 Bilateral Diagnostic Mammogram, [facility]. 06/24/2013 Bilateral Screening Mammogram, [facility]. 06/29/2015 Bilateral Screening Mammogram, [facility]. Findings: Targeted ultrasound right breast 11 to 12:00 position including the subareolar region and axilla. At the 12:00 position, 5 cm from the nipple, there is a benign-appearing cyst cluster measuring 1.0 x 0.7 x 0.2 cm, probable mammographic correlate. Overall Assessment: Probably benign, BI-RAD 3 Management: Diagnostic Mammogram of the right breast in 6 months. A clinical breast exam by your physician is recommended on an annual basis and results should be correlated with mammographic findings. This exam should not preclude additional follow-up of suspicious palpable abnormalities. Results were given to the patient verbally at the time of exam. Electronically signed and approved by: Renata Santiago M.D. Radiologist
== END | disposition home or self-care (01) ==
LOC: RADMAMWWP 09:07
PROVIDERS: ATTEND Surgery
DX: Z12.31 Encounter for screening mammogram for malignant neoplasm of breast (principal); R92.321 Mammographic fibroglandular density, right breast; N60.01 Solitary cyst of right breast; Z78.0 Asymptomatic menopausal state; Z92.0 Personal history of contraception
CPT/HCPCS: 77061; 77063; 77065; 77067

== ENCOUNTER → 2023-07-06 | Outpatient (CLI) | payer MEDICAID ==
[2023-07-06 15:33] LABS: ALT 27 U/L (8-44); AST 27 U/L (13-35); Albumin 4.5 g/dL (3.8-4.9); Albumin/Globulin Ratio 1.67 Ratio (1.60-3.17); Alkaline Phosphatase 102 U/L (41-126); BUN/Creat Ratio 19.56 Ratio (12.00-20.00); Blood Urea Nitrogen 17.6 mg/dL (9.0-27.0); Calcium 9.9 mg/dL (8.7-10.3); Carbon Dioxide 23.2 mmol/L (21.6-31.8); Chloride 103 mmol/L (96-109); Chol/HDL Ratio 2.66 Ratio; Globulin 2.7 g/dL (1.6-3.3); Glucose 93 mg/dL (70-110); LDL Cholesterol,Calculated 42.3 mg/dL (0.0-131.0); Potassium 4.3 mmol/L (3.5-5.5); Sodium 140 mmol/L (135-145); Total Bilirubin 0.4 mg/dL (0.3-1.2); Total Protein 7.2 g/dL (6.2-8.2)
== END | disposition home or self-care (01) ==
LOC: LABWHC1 08:21
PROVIDERS: ATTEND Internal Medicine Endocrinology, Diabetes & Metabolism
DX: E11.65 Type 2 diabetes mellitus with hyperglycemia (principal)
CPT/HCPCS: 36415; 80053; 80061; 82043; 82570; 83036; 84443